=== PATIENT | male | born 1945 | race Caucasian/White ===

== ENCOUNTER 2017-05-06 11:33 | Outpatient (CLI) | payer MEDICARE ==
[2017-05-06 12:55] LABS: Hemoglobin A1c 5.9 % (4.0-6.0)
[2017-05-06 13:08] LABS: #Eosinphils 0.1 thou/uL (0.0-0.7); #Lymphocytes 1.5 thou/uL (1.20-3.40); #Monocytes 1.1 thou/uL (0.11-0.59); #Neutrophils 5.2 thou/uL (1.40-6.50); %Basophils 0.6 % (0.0-1.0); %Eosinophils 1.4 % (0.0-10.0); %Monocytes 14.2 % (0.0-10.0); Hematocrit 33.5 % (42.0-52.0); Mean Platelet Volume 10.9 fL (7.4-10.4); Red Blood Cell (RBC) Count 5.04 mill/uL (4.70-6.10)
[2017-05-06 13:11] LABS: ALT (SGPT) Less than 7 U/L (8-55); AST (SGOT) 11 U/L (5-34); Alkaline Phosphatase 90 U/L (40-150); Anion Gap 15 mmol/L (10-20); BUN (Urea Nitrogen) 18 mg/dL (8.4-25.7); Bilirubin, Total 0.5 mg/dL (0.2-1.2); Calc. Creatinine Clearance 0 mL/min (70-130); Calcium 9.1 mg/dL (7.8-10.44); Carbon Dioxide 24 mmol/L (23-31); Chloride 103 mmol/L (98-107); Estimated GFR-MDRD 88; Globulin 3.9 g/dL (2.4-3.5); Protein, Total 7.3 g/dL (5.8-8.1)
[2017-05-06 13:37] LABS: Anisocytosis MODERATE=16-30 cells (100X) (0-5/hpf); Hypochromia MODERATE=16-30 cells (100X) (0-5/hpf); Microcytosis MODERATE=15-30 cells (100X) (0-5/hpf); Ovalocytes SLIGHT = 2-5 cells (100X) (0-1/hpf); Polychromasia SLIGHT = 2-3 cells (100X) (0-2/hpf); Schistocytes SLIGHT = 2-5 cells (100X) (0-1/hpf); Target Cells SLIGHT = 2-5 cells (100X) (0-1/hpf)
== END 2017-05-06 11:34 | disposition home or self-care (01) ==
LOC: LABBT 11:33
PROVIDERS: ATTEND Specialist
DX: Z01.812 Encounter for preprocedural laboratory examination (principal); C18.7 Malignant neoplasm of sigmoid colon
CPT/HCPCS: 80053; 82378; 83036; 85025; 93005; 93010

== ENCOUNTER 2017-05-10 05:28 | Inpatient (IN) | payer MEDICARE ==
[2017-05-10] MEDS ORDERED: Ketorolac Tromethamine 30 MG/ML VIAL ONE ×2 (06:15→12:45)
[2017-05-10] MEDS ORDERED: cefOXitin 2 GM, Syringe 1 ML in Sterile Water 10 ML SLOW IVP SCH (06:30)
[2017-05-10] MEDS ORDERED: Fentanyl 100 MCG/2 ML VIAL ONE ×3 (06:53→07:19)
[2017-05-10] MEDS ORDERED: Midazolam HCl 2 mg/2 ml Vial ONE (06:53)
[2017-05-10] MEDS ORDERED: Bupivacaine/Epinephrine 0.25% 30 ML VIAL ONE ×2 (07:05→09:09)
[2017-05-10] MEDS ORDERED: Glycopyrrolate 0.2 MG/ML 5 ML SYRINGE ONE (07:37)
[2017-05-10] MEDS ORDERED: Ondansetron HCl/PF 4 MG/2 ML Vial ONE (07:37)
[2017-05-10] MEDS ORDERED: ePHEDrine/0.9% NaCl/PF SYRINGE 50 mg/10 ml ONE (07:37)
[2017-05-10] MEDS ORDERED: Propofol 200 MG/20 ML VIAL ONE (07:37)
[2017-05-10] MEDS ORDERED: Lidocaine 2% w/Epinephrine 1:200K 20 ML VIAL ONE (08:05)
[2017-05-10] MEDS ORDERED: cefOXitin 2 GM VIAL ONE (09:09)
[2017-05-10] MEDS ORDERED: Insulin Regular 300 UNITS/3 ML VIAL ONE (10:10)
[2017-05-10] MEDS ORDERED: Promethazine HCl 25 MG/ML VIAL IM PRN ×2 (11:29→13:05)
[2017-05-10] MEDS ORDERED: Promethazine HCl 25 MG/ML VIAL SLOW IVP PRN (11:29)
[2017-05-10] MEDS ORDERED: Ondansetron HCl/PF 4 MG/2 ML Vial IVP PRN ×2 (11:29→13:05)
[2017-05-10] MEDS ORDERED: Dextrose 5% in Water 1,000 ML IV PRN (11:30)
[2017-05-10] MEDS ORDERED: Insulin Regular 300 UNITS/3 ML VIAL SC PRN ×2 (11:30→13:05)
[2017-05-10] MEDS ORDERED: Dextrose 50% Abboject 50 ML SYRINGE SLOW IVP PRN (11:30)
[2017-05-10] MEDS ORDERED: hydrALAZINE 20 MG/ML VIAL SLOW IVP PRN (13:05)
[2017-05-10] MEDS ORDERED: Famotidine/PF 20 mg/2ml Vial SLOW IVP SCH ×2 (13:05→14:00)
[2017-05-10] MEDS ORDERED: Acetaminophen 1,000 MG in Premix Bag 1 BAG IVPB SCH ×2 (13:05→14:00)
[2017-05-10] MEDS ORDERED: Morphine 4 MG/ML Carpuject SLOW IVP PRN ×2 (13:05)
[2017-05-10] MEDS: Aspirin 81 mg Enteric Coated Tablet PO SCH (13:48)
[2017-05-10] MEDS: metFORMIN 500 MG TAB PO SCH (13:48)
[2017-05-10] MEDS: Carvedilol 6.25 MG TAB PO SCH (13:49)
[2017-05-10] MEDS: Famotidine 20 MG TAB PO SCH ×2 (13:49→20:23)
[2017-05-10] MEDS: Ketorolac Tromethamine 30 MG/ML VIAL IVP SCH ×3 (13:50→23:59)
[2017-05-10] MEDS: D5 1/2 NS w/20 mEq KCL 1,000 ML IV SCH ×2 (13:51→20:24)
[2017-05-10] MEDS ORDERED: cefOXitin Sodium 1 GM in Sodium Chloride 0.9% 100 ML IVPB SCH (14:00)
[2017-05-10] MEDS ORDERED: Famotidine 20 MG TAB PO SCH (14:00)
[2017-05-10] MEDS: cefOXitin Sodium 1 GM, Syringe 0.5 ML in Sterile Water 10 ML SLOW IVP SCH ×2 (14:07→22:07)
[2017-05-10 14:56] VITALS: BMI 25.9
[2017-05-10] MEDS ORDERED: FLU VACC TS2017-18 (>65YR) 0.5 ML SYRINGE IM ONE (17:15)
[2017-05-10] MEDS: Acetaminophen 1,000 MG in Premix Bag 1 BAG IVPB SCH (20:20)
[2017-05-10] MEDS: Famotidine/PF 20 mg/2ml Vial SLOW IVP SCH (20:23)
[2017-05-10] MEDS: Enoxaparin Sodium 40 MG/0.4 ML SYRINGE SC SCH (20:23)
[2017-05-11] MEDS: Acetaminophen 1,000 MG in Premix Bag 1 BAG IVPB SCH ×2 (02:41→08:19)
[2017-05-11 05:44] LABS: #Eosinphils 0.1 thou/uL (0.0-0.7); #Lymphocytes 1.4 thou/uL (1.20-3.40); #Monocytes 1.4 thou/uL (0.11-0.59); %Basophils 0.4 % (0.0-1.0); %Eosinophils 0.7 % (0.0-10.0); %Lymphocytes 12.8 % (21.0-51.0); %Monocytes 12.5 % (0.0-10.0); Hematocrit 29.5 % (42.0-52.0); Mean Platelet Volume 10.5 fL (7.4-10.4); White Blood Cell (WBC) Count 10.8 thou/uL (4.8-10.8)
[2017-05-11 05:55] LABS: Anion Gap 14 mmol/L (10-20); BUN (Urea Nitrogen) 12 mg/dL (8.4-25.7); Calc. Creatinine Clearance 112 mL/min (70-130); Calcium 8.4 mg/dL (7.8-10.44); Carbon Dioxide 23 mmol/L (23-31); Chloride 103 mmol/L (98-107); Estimated GFR-MDRD Greater than 90
[2017-05-11] MEDS: D5 1/2 NS w/20 mEq KCL 1,000 ML IV SCH ×2 (06:22→12:46)
[2017-05-11] MEDS: Ketorolac Tromethamine 30 MG/ML VIAL IVP SCH ×4 (06:23→23:52)
[2017-05-11] MEDS ORDERED: HYDROcodone/Acetaminophen 7.5/325 mg Tablet PO PRN ×2 (07:47)
[2017-05-11] MEDS: Famotidine/PF 20 mg/2ml Vial SLOW IVP SCH ×2 (08:19→21:00)
[2017-05-11] MEDS: Famotidine 20 MG TAB PO SCH ×2 (08:20→20:53)
[2017-05-11] MEDS ORDERED: Insulin Detemir 100 UNITS/ML 12 UNITS in Pre-Filled Syringe 1 EACH SC SCH (10:15)
[2017-05-11] MEDS: metFORMIN 500 MG TAB PO SCH (10:33)
[2017-05-11] MEDS: Carvedilol 6.25 MG TAB PO SCH (10:59)
[2017-05-11] MEDS: Aspirin 81 mg Enteric Coated Tablet PO SCH (10:59)
--- NOTE | 2017-05-11 13:07 | CON ---
DATE OF CONSULTATION: 05/11/2017 SERVICE: Pulmonary Medicine. REASON FOR CONSULTATION: ICU patient. HISTORY OF PRESENT ILLNESS: The patient is a 72-year-old white male who presented in the outpatient setting for an elective colectomy. In the postoperative period, he had elevated blood sugars and h e required an insulin drip in order to prevent poor healing. He currently denies any fevers, chills , nausea or vomiting. His abdominal pain is under decent control, but he does remain exquisitely te nder with any type of manipulation or palpation. He has not passed any gas, or had a bowel movement since the procedure. His appetite is coming around, but he is not too terribly hungry at this time . Otherwise, he is in his usual state of health and has no specific complaints. PAST MEDICAL HISTORY: 1. Hypertension. 2. Dyslipidemia. 3. Coronary artery disease. 4. Type 2 diabetes mellitus. 5. Allergic rhinitis. 6. Osteoarthritis. 7. Colon cancer. PAST SURGICAL HISTORY: 1. Coronary artery bypass graft. 2. Partial colectomy. 3. Colonoscopy. SOCIAL HISTORY: Negative for significant alcohol, tobacco or illicit drug use. He denies any expos ure to chemicals, dust asbestos or tuberculosis. FAMILY HISTORY: Noncontributory. ALLERGIES: No known drug allergies. MEDICATIONS: List of inpatient medications was reviewed. No specific updates were made at this [facility]. REVIEW OF SYSTEMS: General, head, ears, eyes, nose, throat, cardiovascular, respiratory, GI, , mu sculoskeletal, neurologic and skin is negative except as mentioned in the HPI. PHYSICAL EXAMINATION: VITAL SIGNS: Afebrile, pulse 62, blood pressure 130/52, respirations 27, saturation 100% on room ai r. GENERAL: The patient is awake, alert, in no apparent distress. LUNGS: Excellent air entry with no prolonged expiratory phase, wheezing, rhonchi or crackles. HEART: Normal rate, regular. ABDOMEN: Soft, nontender, nondistended, bowel sounds positive. MUSCULOSKELETAL: No cyanosis or clubbing. No pitting in the bilateral lower extremities. NEUROLOGIC: Grossly nonfocal. LABORATORY DATA: WBC 10.8, hemoglobin 8.9, platelets 499,000. Blood sugars ranged from 120-149. B asic metabolic profile is otherwise unremarkable. Liver function studies were also unremarkable pre viously. Outpatient CEA was increasing 3 times. ASSESSMENT: 1. Adenocarcinoma of the colon, status post partial colectomy of the sigmoid colon with primary leni stomosis, postoperative day #1. 2. Type 2 diabetes mellitus. 3. Obstructive sleep apnea, likely. PLAN: After 24 hours, he can be transitioned off of the insulin drip and sent to the surgical unit. Pulmonary will continue to follow while he remains in this location. In the outpatient setting, e valuation for sleep apnea should be considered.
[2017-05-11] MEDS: Enoxaparin Sodium 40 MG/0.4 ML SYRINGE SC SCH (20:53)
[2017-05-12] MEDS: Ketorolac Tromethamine 30 MG/ML VIAL IVP SCH (05:36)
[2017-05-12 08:27] VITALS: BP 124/63; TEMP 97.5
[2017-05-12] MEDS: Carvedilol 6.25 MG TAB PO SCH (08:46)
[2017-05-12] MEDS: Famotidine/PF 20 mg/2ml Vial SLOW IVP SCH (08:46)
[2017-05-12] MEDS: Aspirin 81 mg Enteric Coated Tablet PO SCH (08:46)
[2017-05-12] MEDS: Famotidine 20 MG TAB PO SCH (08:46)
[2017-05-12] MEDS: metFORMIN 500 MG TAB PO SCH (08:46)
--- NOTE | 2017-05-12 11:04 | DIS ---
DATE OF ADMISISON: 05/10/2017 DATE OF DISCHARGE: 05/12/2017 ADMISSION DIAGNOSIS: Sigmoid colon cancer. DISCHARGE DIAGNOSIS: Sigmoid colon cancer. OPERATION PERFORMED: Laparoscopic hand-assisted sigmoid colectomy with periaortic lymph node dissec tion. ADMISSION HISTORY: The patient is a 72-year-old white male. He was noted to be anemic and on colon oscopic screening who was found to have a partially obstructing sigmoid colon cancer. Laparoscopic sigmoid colectomy was recommended. HOSPITAL COURSE: The patient had a difficult, but uneventful laparoscopic sigmoid colectomy. He ap peared to have 2 separate masses within his colon that were within 10 cm of each other. He also gael eared to have some potentially bulky lymphadenopathy that necessitated additional periaortic lymphad enectomy. The surgery was uneventful. There were no complications, minimal blood loss. The patien t tolerated the procedure well. He did have elevated blood sugar during the operation; therefore, w as observed for 24 hours in the ICU, so that he can be on an insulin drip protocol. IMCU was full a nd therefore he have to go to the ICU. He was entirely stable during his time in the ICU. His suga rs stabilized quickly and he remained on an insulin drip of about 4 units per hour while he was in [facility] ICU. He transferred to the surgical floor on postoperative day #1. He was tolerating his clear diet uneventfully. The Deras catheter was removed and he voided uneventfully as well. Today, he is tolerating his full liquid diet. He denies nausea or vomiting. He has had flatus. He has excelle nt bowel sounds. He has never had any significant discomfort and is taking no narcotic medication a t all. His exam is entirely benign. He is felt to be stable for discharge. Discharge orders are written today. He is given no pain medication as he has required none in the h ospital. He is instructed to use [id number] pain medications as necessary. I will see him parag velez on 05/20/2017 when he is 10 days out from his surgery. Pathology is still pending at this time.
--- NOTE | 2017-05-12 11:53 | PRG ---
DATE OF SERVICE: 05/12/2017 SERVICE: Pulmonary Medicine. INTERVAL HISTORY: The patient is doing fine from a cardiovascular and respiratory standpoint. He d enies any fevers, chills, nausea, or vomiting. He has some abdominal tenderness, but he was able to get up and walk around without much difficulty. His pain is under decent control. He is having no rmal bowel function. He is also tolerating p.o. He is hopeful to go home later today. PHYSICAL EXAMINATION: VITAL SIGNS: Afebrile, pulse 70, blood pressure 124/63, respirations 18, saturation 97% on room air . GENERAL: The patient is awake, alert, in no apparent distress. LUNGS: Excellent air entry with no prolonged expiratory phase, wheezing, rhonchi, or crackles. HEART: Normal rate, regular. ABDOMEN: Soft, nontender, nondistended. Bowel sounds positive. MUSCULOSKELETAL: No cyanosis or clubbing. No pitting in the bilateral lower extremities. NEUROLOGIC: Grossly nonfocal. LABORATORY DATA: Blood sugars ranged from 126-193. ASSESSMENT: 1. Adenocarcinoma of the colon, status post partial colectomy of the sigmoid colon with primary leni stomosis, postoperative day #2. 2. Type 2 diabetes mellitus. 3. Obstructive sleep apnea, likely. PLAN: The patient has no further requirements for inpatient pulmonary critical care team. As such, we will sign off. I would like to see him in clinic in to discuss sleep apnea and whether or not p ursuing a polysomnogram would be appropriate.
--- NOTE | 2017-05-13 14:05 | OP ---
DATE OF PROCEDURE: 05/10/2017 PREOPERATIVE DIAGNOSIS: Sigmoid colon cancer. POSTOPERATIVE DIAGNOSES: Sigmoid colon cancer with 2 separate synchronous lesions located about 10 cm apart. OPERATION PERFORMED: Hand-assisted laparoscopic sigmoid colectomy, periaortic lymph node dissecti on. SURGEON: Aj Benton M.D. ANESTHESIA: General endotracheal. INDICATIONS: The patient is a 72-year-old white male. He underwent evaluation recently secondary t o anemia and was found to have a sigmoid colon cancer. He has undergone cardiac clearance and is ta ernie to the operating room at this time for a sigmoid colectomy. He had outpatient mechanical and an tibiotic bowel prep. OPERATIVE PROCEDURE IN DETAIL: Informed consent was obtained. The patient was taken to the operati ng room where general endotracheal anesthesia was obtained with the patient in supine position. Tap blocks had been placed by Anesthesia preoperatively. Dears catheter was placed, the abdomen was pr epped with ChloraPrep and draped in sterile fashion. Local anesthetic was infiltrated using 0.25% M arcaine with epinephrine and a 5 mm supraumbilical incision was created through which a Veress needl e was passed into the peritoneal cavity and pneumoperitoneum established using carbon dioxide up to a pressure of 15 mmHg. A 5 mm trocar port was passed through this same incision. Laparoscopic camer a was passed through this port. Under direct vision, a 12 mm right lower quadrant port was placed. I selected a location for the extraction site and an 8 cm oblique left lower quadrant incision was created. Dissection was carried through skin and subcutaneous tissue. Muscle splitting was utilize d to gain access to the abdominal cavity. The Samuel wound retractor was passed through this wound and the GelPort was affixed to this. Examination within the abdomen revealed a bulky tumor in the upper rectum at the rectosigmoid juncti on. The mesentery around this was very full and thick and certainly gave the impression of metastat ic lymph nodes being within this. There was a second focus of induration within the colon at about the mid sigmoid colon that was adherent to the left lateral abdominal wall and the pelvic side wall. This also gave the impression of a second malignancy. I carefully dissected the sigmoid mass away from the lateral abdominal wall using the LigaSure. Some of the peritoneum was taken with the mass in order to obtain clear margins. I then followed this dissection superiorly and mobilized the lef t colon by incising the white line of Toldt. This dissection was carried up in order to fully mobil ize the splenic flexure. The omentum was taken off of the distal transverse colon to fully free the segment. The colon was then mobilized by elevating the mesentery off of Toldt fascia in a lateral to medial fashion. I then turned my attention to the mesentery at the base of the sigmoid colon. This was incised and a mesenteric/retroperitoneal dissection was carried laterally. Because of the thickness of the tiss ue it was difficult to ascertain the location of the left ureter. I examined the retroperitoneum on the left side and still had difficulty identifying the ureter. I therefore began dissection along the right hand side, incising the peritoneum all the way down into the pelvis and across the anterio r aspect of the rectum. I completed this peritoneal dissection on the left. I was able to enter th e post-mesenteric plane and elevated the mesentery away from the sacrum by incising the areolar tiss ue extending deeply. I was able to identify the malignancy within the upper rectum. I dissected se veral centimeters below this and began to divide the mesorectum at this level. I eventually cleared the rectum at the level of the upper rectum and divided this with 2 fires of the [place] stapler us ing the blue loads. I then completed the mesorectal excision elevating the rest of the rectum towar ds the sigmoid colon in a retrograde fashion. At this point, I was able to identify the left ureter . This had been kept free from harm. Prior to this; however, I had asked anesthesia to give a dose of Indigo carmine. The urine had turned blue and there was certainly no evidence of any intra-abdom inal leak. I carefully dissected the mesentery back to the inferior mesenteric artery. At this point, I identi fied a segment of descending colon that would reach down into the pelvis and this was marked with e LigaSure. The two malignancies within the colon were then elevated through the Samuel wound retra ctor with difficulty. I could not have gotten this size of a cancer through anything smaller than t he devices being utilized. Once it was out, extracorporeally I divided the inferior mesenteric art alison between clamps and 2-0 silk ties and completed the mesenteric dissection to the area that had be en selected for anastomosis. Before opening the bowel, the area was toweled off and instruments to be utilized were selected. A colotomy was created and the anvil of a 33 mm EEA stapler was passed t hrough the colotomy and brought out antimesenteric several centimeters proximally. The colon was th en transected just proximal to the colostomy, removing the colotomy in continuity with the segment t o be resected and the specimen was passed off the field. A pursestring suture of 3-[address] aced around the base of the anvil. The anvil was prepped with Betadine. At this point, all instruments utilized while the bowel was opened were passed off the field. Towel s were removed. Gloves were changed. The proximal colon was dropped back down into the abdominal cavity and pneumoperitoneum was reestabl ished. From below, EEA sizers were passed up to the staple line under visible and palpable directio n. The 33 mm stapler was then brought up to the end of the staple line and the spike was advanced t hrough the staple line. The two segments of the bowel were mated and the stapler was fired to creat e the anastomosis. Since there were 2 cancers, I submitted both proximal and distal bowel segments even though they were both grossly clear by several centimeters. The integrity of the anastomosis was checked with an underwater air insufflation test and found to b e airtight. At the time that the colon was removed, before the anastomosis was created, as I inspected the abdom en, it was difficult to palpate the liver because of fairly dense adhesions in the upper abdomen. T he left lobe was certainly without evidence of metastatic disease. I was able to palpate some of th e right lobe, but not all of it. There was, however, additional lymphadenopathy within the retroper itoneum surrounding the inferior mesenteric artery. I therefore dissected all visible and palpable retroperitoneal lymphadenopathy in the periaortic region and submitted this as a separate specimen. There was no other visible or palpable disease present within the retroperitoneum or mesentery. The fascia at the 12 mm port site was closed with 0 Vicryl suture using a GraNee needle. Instrument s and ports were removed under direct vision. Pneumoperitoneum was carefully evacuated. The abdomi nal wall was thoroughly cleansed and all instruments were removed from the field. Gowns and gloves were changed in preparation for closure. The closing tray was utilized to close the wound. The lef t lower quadrant fascia was closed with #1 PDS suture in 2 layers. Additional local anesthetic was infiltrated during closure. The wound was irrigated with 2 liters of saline. The wound was then cl osed in layers with 3-0 and 4-0 Monocryl. The remaining incisions were closed with 4-0 Monocryl sub cuticular. Dermabond was placed externally over each incision. There were no complications. Blood loss was minimal. The patient tolerated the procedure well and was taken to recovery room in stabl e condition.
== END 2017-05-12 11:53 | disposition home or self-care (01) | DRG 331 ==
LOC: SURG A 05:28 → EDSTATUS 11:35 → CCU 11:48 → SURG B 05-11 16:41
PROVIDERS: ADMIT Specialist; ATTEND Specialist
PROC: 0DBN0ZZ Excision of Sigmoid Colon, Open Approach (ICD-10-PCS; principal; 2017-05-10)
PROC: 07BD0ZX Excision of Aortic Lymphatic, Open Approach, Diagnostic (ICD-10-PCS; 2017-05-10)
PROC: 3E0T3BZ Introduction of Anesthetic Agent into Peripheral Nerves and Plexi, Percutaneous Approach (ICD-10-PCS; 2017-05-10)
DX: C18.7 Malignant neoplasm of sigmoid colon (principal); E11.65 Type 2 diabetes mellitus with hyperglycemia; I25.5 Ischemic cardiomyopathy; I25.10 Atherosclerotic heart disease of native coronary artery without angina pectoris; I10 Essential (primary) hypertension; G47.33 Obstructive sleep apnea (adult) (pediatric); D50.9 Iron deficiency anemia, unspecified; J30.9 Allergic rhinitis, unspecified; M19.90 Unspecified osteoarthritis, unspecified site; Z95.1 Presence of aortocoronary bypass graft; Z79.84 Long term (current) use of oral hypoglycemic drugs; Z79.82 Long term (current) use of aspirin; E78.00 Pure hypercholesterolemia, unspecified; Z87.891 Personal history of nicotine dependence
CPT/HCPCS: 36415; 36416; 80048; 85025; 88307; 88309; 90471; 90682; 90732; A4216; G0008; G0009; J0131; J0694; J1650; J1815; J1885; J2250; J2405; J2704; J3010; J7050; Q2036; S0028

== ENCOUNTER 2017-06-06 15:17 | Outpatient (CLI) | payer MEDICARE | END 2017-06-06 15:18 | disposition home or self-care (01) | LOC: LABBT 15:17 | PROVIDERS: ATTEND Specialist | DX: Z01.812 Encounter for preprocedural laboratory examination (principal); C18.7 Malignant neoplasm of sigmoid colon ==

== ENCOUNTER 2017-06-10 12:12 | Day surgery (SDC) | payer MEDICARE ==
[2017-06-06 15:43] VITALS: BMI 29.3
[2017-06-10] MEDS ORDERED: CEFAZOLIN/Water 2 GM/20 ML SYRINGE ONE (13:11)
[2017-06-10] MEDS ORDERED: Ketorolac Tromethamine 30 MG/ML VIAL ONE (13:11)
[2017-06-10] MEDS ORDERED: Lidocaine 2% PF 5 ML VIAL ONE (14:51)
[2017-06-10] MEDS ORDERED: Bupivacaine/Epinephrine 0.25% 30 ML VIAL ONE (14:51)
[2017-06-10] MEDS ORDERED: Fentanyl 100 MCG/2 ML VIAL ONE (14:59)
[2017-06-10] MEDS ORDERED: Propofol 200 MG/20 ML VIAL ONE (16:21)
[2017-06-10] MEDS ORDERED: Lidocaine 1% PF 5 ML VIAL ONE (16:21)
--- NOTE | 2017-06-10 16:42 | OP ---
DATE OF SERVICE: 06/10/2017 PREOPERATIVE DIAGNOSIS: Colon cancer. POSTOPERATIVE DIAGNOSIS: Colon cancer. OPERATION PERFORMED: Placement of right subclavian power compatible standard sized MediPort. SURGEON: Aj Benton M.D. ANESTHESIA: Total intravenous anesthesia with local using 0.25% Marcaine with epinephrine. INDICATIONS: The patient is a 72-year-old white male. He had a recent surgery for colon cancer. He has metastatic disease to the lymph nodes and chemotherapy has been recommended. He presents for Me diPort placement for chemotherapy administration. DESCRIPTION OF OPERATION: Informed consent was obtained. The patient was taken to the operating brandi m where total intravenous anesthesia obtained with the patient in supine position. Right chest was p repped with ChloraPrep and draped in sterile fashion. Local anesthetic was infiltrated and a large g auge needle was passed in the clavicle and subclavian vein. Guidewire was passed through the needle and fluoroscopically confirmed in the superior vena cava. Additional local anesthetic was infiltrate d and transverse incision was created based on needle insertion site. A subcutaneous pocket was diss ected inferiorly. Introducer dilator was passed over the guidewire with fluoroscopic guidance. The catheter was passed through the introducer, which was moved in the usual peel-apart fashion. Cathete r tip was positioned at the atrial caval junction and the catheter was trimmed to appropriate length and secured to the locking hub of the MediPort. The port was placed within the subcutaneous pocket a nd secured to the fascia with 2 interrupted sutures of 3-0 Prolene. The wound was closed in layers w ith 3-0 and 4-0 Monocryl. Dermabond was placed externally. The port aspirated blood easily and was flushed with heparinized saline. There were no complications. Patient tolerated the procedure well and was taken to recovery room in stable condition.
--- NOTE | 2017-06-10 18:21 | RAD ---
UPRIGHT PORTABLE CHEST 06/10/17 HISTORY: 72-year-old male status post Mediport placement. A right subclavian catheter injection port. Postop midline sternotomy. Heart size is within normal li mits. No confluent pneumonia, overt edema, or pleural effusion. No evidence for pneumothorax. IMPRESSION: Right subclavian catheter and Mediport placement. No pneumothorax or other acute process. POS: [facility]
== END 2017-06-10 16:38 | disposition home or self-care (01) ==
LOC: SDC 12:12
PROVIDERS: ATTEND Specialist
PROC: 05H533Z Insertion of Infusion Device into Right Subclavian Vein, Percutaneous Approach (ICD-10-PCS; principal; 2017-06-10)
PROC: B516ZZA Fluoroscopy of Right Subclavian Vein, Guidance (ICD-10-PCS; 2017-06-10)
DX: C18.7 Malignant neoplasm of sigmoid colon (principal); C77.9 Secondary and unspecified malignant neoplasm of lymph node, unspecified; Z79.82 Long term (current) use of aspirin; Z79.899 Other long term (current) drug therapy; Z90.49 Acquired absence of other specified parts of digestive tract
CPT/HCPCS: 36561; 71010; C1788; J0131; J1642; J1885; J2001; J2704; J3010

== ENCOUNTER 2017-06-11 09:53 | Outpatient (CLI) | payer MEDICARE ==
--- NOTE | 2017-06-13 10:19 | PET ---
PET CT: HISTORY: Colon cancer. TECHNIQUE: PET CT was performed from the skull base through the mid thigh after administration of 16.64 mCi F18- FDG> FINDINGS: CT images used for attenuation correction shows postsurgical changes in the rectum from prior rectal surgery. Hypermetabolic activity is seen in the colon, but this is likely physiologic. There are enla rged hypermetabolic retroperitoneal lymph nodes measuring up to 2.7 cm in size. Max SUV value of thes e lymph nodes is 4.2. There are bilateral adrenal masses which are hypermetabolic. The largest is see n on the left measuring 2.2 cm in size with max SUV value of 5.7. There are hypermetabolic bilateral cervical lymph nodes which are not significantly enlarged but have a max SUV value of 5.6. There are diffuse hypermetabolic osseous lesions throughout the skeleton. These are seen in the verte bral bodies, posterior elements of the spine, bilateral pelvic bones, right femur, bilateral acromion processes of the scapula, and ribs. Max SUV value is seen in the L5 vertebral body with a max SUV va lue of 10.3. CT images used for attenuation correction shows moderate left hydronephrosis. Atherosclerotic calcifi cations are seen in the aorta. Atelectasis is seen in the left lung base. There is a right-sided Medi Port with its tip in the superior vena cava. Gallstones are seen in the gallbladder. There is heterogeneous activity in the liver. No obvious focal liver lesions are seen, but metastatic disease to the liver is a possibility given the heterogeneous hypermetabolic activity in the liver. There is hypermetabolic activity in the anterior abdominal wall which may represent postsurgical robles ge. IMPRESSION: 1. Bilateral adrenal metastatic disease. 2. Metastatic disease to cervical and retroperitoneal lymph nodes. 3. Diffuse osseous metastatic disease. POS: [facility]
== END 2017-06-11 09:54 | disposition home or self-care (01) ==
LOC: PET 09:53
PROVIDERS: ATTEND Internal Medicine Medical Oncology
DX: C18.7 Malignant neoplasm of sigmoid colon (principal); C79.72 Secondary malignant neoplasm of left adrenal gland; C79.71 Secondary malignant neoplasm of right adrenal gland; C77.2 Secondary and unspecified malignant neoplasm of intra-abdominal lymph nodes; C77.5 Secondary and unspecified malignant neoplasm of intrapelvic lymph nodes; C79.51 Secondary malignant neoplasm of bone
CPT/HCPCS: 78815; A9552

== ENCOUNTER 2017-06-22 10:48 | Day surgery (SDC) | payer MEDICARE ==
[2017-06-22] MEDS ORDERED: Sodium Chloride 0.9% 20 ML ONE (11:35)
[2017-06-22 11:42] VITALS: BP 149/70; TEMP 98
[2017-06-22] MEDS ORDERED: DEXTROSE 5% IVPB SCH ×5 (12:00)
[2017-06-22] MEDS ORDERED: FLUOROURACIL IVPB SCH ×2 (12:00)
[2017-06-22] MEDS ORDERED: WATER IVPB SCH ×5 (12:00)
[2017-06-22] MEDS ORDERED: OXALIPLATIN IVPB SCH ×3 (12:00)
[2017-06-22] MEDS ORDERED: ONDANSETRON IVPB SCH (12:00)
[2017-06-22] MEDS ORDERED: DEXAMETHASONE IVPB SCH (12:00)
[2017-06-22] MEDS ORDERED: BEVACIZUMAB IVPB SCH (12:00)
[2017-06-22] MEDS ORDERED: SODIUM CHLORIDE 0.9% IVPB SCH ×2 (12:00)
== END 2017-06-22 17:53 | disposition home or self-care (01) ==
LOC: ONC/OP 10:48
PROVIDERS: ATTEND Internal Medicine Medical Oncology
DX: Z51.11 Encounter for antineoplastic chemotherapy (principal); C18.7 Malignant neoplasm of sigmoid colon; C79.71 Secondary malignant neoplasm of right adrenal gland; C79.72 Secondary malignant neoplasm of left adrenal gland; C77.2 Secondary and unspecified malignant neoplasm of intra-abdominal lymph nodes; C77.5 Secondary and unspecified malignant neoplasm of intrapelvic lymph nodes; C79.51 Secondary malignant neoplasm of bone; D50.9 Iron deficiency anemia, unspecified; I10 Essential (primary) hypertension; E11.9 Type 2 diabetes mellitus without complications; I25.2 Old myocardial infarction; E78.5 Hyperlipidemia, unspecified; Z87.891 Personal history of nicotine dependence; Z79.82 Long term (current) use of aspirin; Z79.84 Long term (current) use of oral hypoglycemic drugs; Z79.899 Other long term (current) drug therapy; Z95.828 Presence of other vascular implants and grafts; Z90.49 Acquired absence of other specified parts of digestive tract; Z98.890 Other specified postprocedural states
CPT/HCPCS: 36415; 80053; 82248; 82378; 83615; 84100; 84550; 96367; 96413; 96415; 96417; A4216; J1100; J2405; J7050; J7070; J9035; J9190; J9263

== ENCOUNTER 2017-07-05 11:34 | Day surgery (SDC) | payer MEDICARE, OTHER ==
[2017-07-05] MEDS ORDERED: Sodium Chloride 0.9% 20 ML ONE (11:44)
[2017-07-05 11:51] VITALS: BP 135/63; TEMP 97.4
[2017-07-05] MEDS ORDERED: SODIUM CHLORIDE 0.9% IVPB SCH (12:30)
[2017-07-05] MEDS ORDERED: Dexamethasone 10 MG, Ondansetron HCl/PF 10 MG in Sodium Chloride 0.9% 50 ML IVPB SCH (12:30)
[2017-07-05] MEDS ORDERED: OXALIPLATIN IVPB SCH (12:30)
[2017-07-05] MEDS ORDERED: BEVACIZUMAB IVPB SCH (12:30)
[2017-07-05] MEDS ORDERED: FLUOROURACIL IVPB SCH (12:30)
[2017-07-05] MEDS ORDERED: WATER IVPB SCH ×2 (12:30)
[2017-07-05] MEDS ORDERED: DEXTROSE 5% IVPB SCH ×2 (12:30)
[2017-07-05] MEDS ORDERED: Admixture Fee 1 EACH in Dextrose 5% in Water 10 ML FS SCH (13:45)
[2017-07-18] MEDS ORDERED: SODIUM CHLORIDE 0.9% IVPB SCH (10:45)
[2017-07-18] MEDS ORDERED: WATER IVPB SCH (10:45)
[2017-07-18] MEDS ORDERED: BEVACIZUMAB IVPB SCH (10:45)
[2017-07-18] MEDS ORDERED: FLUOROURACIL IVPB SCH (10:45)
[2017-07-18] MEDS ORDERED: DEXTROSE 5% IVPB SCH (10:45)
== END 2017-07-05 17:53 | disposition home or self-care (01) ==
LOC: ONC/OP 11:34
PROVIDERS: ATTEND Internal Medicine Medical Oncology
DX: Z51.11 Encounter for antineoplastic chemotherapy (principal); C18.7 Malignant neoplasm of sigmoid colon; C77.3 Secondary and unspecified malignant neoplasm of axilla and upper limb lymph nodes; C77.2 Secondary and unspecified malignant neoplasm of intra-abdominal lymph nodes; C79.72 Secondary malignant neoplasm of left adrenal gland; C79.71 Secondary malignant neoplasm of right adrenal gland; C79.51 Secondary malignant neoplasm of bone; D50.9 Iron deficiency anemia, unspecified; E11.9 Type 2 diabetes mellitus without complications; I10 Essential (primary) hypertension; I25.2 Old myocardial infarction; E78.5 Hyperlipidemia, unspecified; Z79.84 Long term (current) use of oral hypoglycemic drugs; Z79.82 Long term (current) use of aspirin; Z79.899 Other long term (current) drug therapy; Z90.49 Acquired absence of other specified parts of digestive tract; Z98.890 Other specified postprocedural states; Z87.891 Personal history of nicotine dependence
CPT/HCPCS: 96375; 96413; 96415; 96417; A4216; J1100; J2405; J7050; J7070; J9035; J9190; J9263

== ENCOUNTER 2017-07-18 10:15 | Day surgery (SDC) | payer MEDICARE ==
[2017-07-18] MEDS ORDERED: FLUOROURACIL IVPB SCH ×2 (10:45)
[2017-07-18] MEDS ORDERED: OXALIPLATIN IVPB SCH ×3 (10:45)
[2017-07-18] MEDS ORDERED: Dexamethasone 10 MG, Ondansetron HCl/PF 10 MG in Sodium Chloride 0.9% 50 ML IVPB SCH (10:45)
[2017-07-18] MEDS ORDERED: BEVACIZUMAB IVPB SCH (10:45)
[2017-07-18] MEDS ORDERED: SODIUM CHLORIDE 0.9% IVPB SCH (10:45)
[2017-07-18] MEDS ORDERED: WATER IVPB SCH ×5 (10:45)
[2017-07-18] MEDS ORDERED: DEXTROSE 5% IVPB SCH ×5 (10:45)
[2017-07-18 10:55] VITALS: BP 129/58; TEMP 98.1
[2017-07-18] MEDS ORDERED: Admixture Fee 1 EACH in Dextrose 5% in Water 10 ML FS SCH ×2 (11:15)
[2017-07-18] MEDS ORDERED: Sodium Chloride 0.9% 20 ML ONE (11:19)
== END 2017-07-18 15:50 | disposition home or self-care (01) ==
LOC: ONC/OP 10:15
PROVIDERS: ATTEND Internal Medicine Medical Oncology
DX: Z51.11 Encounter for antineoplastic chemotherapy (principal); C18.7 Malignant neoplasm of sigmoid colon; E11.9 Type 2 diabetes mellitus without complications; I10 Essential (primary) hypertension; I25.2 Old myocardial infarction; E78.5 Hyperlipidemia, unspecified; Z90.49 Acquired absence of other specified parts of digestive tract; Z98.890 Other specified postprocedural states; Z83.49 Family history of other endocrine, nutritional and metabolic diseases
CPT/HCPCS: 96367; 96413; 96415; 96417; A4216; J1100; J2405; J7050; J7070; J9035; J9190; J9263

== ENCOUNTER 2017-08-01 10:15 | Day surgery (SDC) | payer MEDICARE ==
[2017-08-01] MEDS ORDERED: Sodium Chloride 0.9% 40 ML ONE (10:26)
[2017-08-01 10:45] VITALS: BP 121/61; TEMP 97.9
[2017-08-01] MEDS ORDERED: OXALIPLATIN IVPB SCH ×3 (10:45)
[2017-08-01] MEDS ORDERED: WATER IVPB SCH ×5 (10:45)
[2017-08-01] MEDS ORDERED: BEVACIZUMAB IVPB SCH (10:45)
[2017-08-01] MEDS ORDERED: DEXTROSE 5% IVPB SCH ×5 (10:45)
[2017-08-01] MEDS ORDERED: FLUOROURACIL IVPB SCH ×2 (10:45)
[2017-08-01] MEDS ORDERED: SODIUM CHLORIDE 0.9% IVPB SCH (10:45)
[2017-08-01] MEDS ORDERED: Ondansetron HCl/PF 4 MG/2 ML Vial SLOW IVP SCH (11:00)
[2017-08-01] MEDS ORDERED: Dexamethasone 4 mg/ml Vial SLOW IVP SCH (11:00)
[2017-08-01] MEDS ORDERED: Dexamethasone 10 MG, Ondansetron HCl/PF 10 MG in Sodium Chloride 0.9% 50 ML IVPB SCH (11:00)
[2017-08-01] MEDS ORDERED: Dextrose 5% in Water 10 ML IVPB SCH (12:15)
== END 2017-08-01 15:50 | disposition home or self-care (01) ==
LOC: ONC/OP 10:15
PROVIDERS: ATTEND Internal Medicine Medical Oncology
DX: Z51.11 Encounter for antineoplastic chemotherapy (principal); C18.7 Malignant neoplasm of sigmoid colon; D50.9 Iron deficiency anemia, unspecified; C77.8 Secondary and unspecified malignant neoplasm of lymph nodes of multiple regions; C79.51 Secondary malignant neoplasm of bone; E11.9 Type 2 diabetes mellitus without complications; I10 Essential (primary) hypertension; I25.2 Old myocardial infarction; E78.5 Hyperlipidemia, unspecified; Z79.84 Long term (current) use of oral hypoglycemic drugs; Z79.82 Long term (current) use of aspirin; Z79.899 Other long term (current) drug therapy; Z90.49 Acquired absence of other specified parts of digestive tract; Z98.890 Other specified postprocedural states; Z87.891 Personal history of nicotine dependence; Z80.8 Family history of malignant neoplasm of other organs or systems
CPT/HCPCS: 36415; 80053; 82248; 82378; 83615; 84100; 84550; 96375; 96413; 96415; 96417; A4216; J1100; J2405; J7050; J7070; J9035; J9190; J9263

== ENCOUNTER 2017-08-11 13:08 | Outpatient (CLI) | payer MEDICARE ==
--- NOTE | 2017-08-12 10:54 | PET ---
PET CT: Date: 08/11/17 HISTORY: 72-year-old male with colon cancer. Exam requested for restaging. Patient had previous chemotherapy. TECHNIQUE: PET scanning with CT attenuation correction was performed from the base of the brain through the prox imal thighs following the intravenous administration of 11.7 mCi F18-FDG in the right hand. COMPARISON: PET CT dated 06/11/17. FINDINGS: No jack hypermetabolism is seen in the neck, chest, axilla, abdomen, or pelvis. The hypermetabolic a ctivity in the cervical and retroperitoneal lymph nodes noted on the previous study have resolved. No hypermetabolic pulmonary nodules, liver, or adrenal lesions are seen. The increased FDG localizati on in the bilateral adrenal glands on the previous study has resolved in the interim. There has been interval resolution of hypermetabolic lesions in the T2, T4, T6, T11, L2, L5, and S1 v ertebral bodies. The remainder of the hypermetabolic osseous lesions are again seen in the posterior elements of the spine, pelvic bones, scapula, and ribs, which have either improved or are stable. There is physiologic activity in the GI and tracts, and the visualized portions of the brain. The CT scan used for attenuation correction demonstrates gallstones and atelectatic changes at the le ft lung base. No pleural or pericardial effusions are seen. IMPRESSION: Partial response to therapy with interval improvement since 06/11/17. POS: [facility]
== END 2017-08-11 13:09 | disposition home or self-care (01) ==
LOC: PET 13:08
PROVIDERS: ATTEND Internal Medicine Medical Oncology
DX: C18.7 Malignant neoplasm of sigmoid colon (principal)
CPT/HCPCS: 78815; A9552

== ENCOUNTER 2017-08-15 10:51 | Day surgery (SDC) | payer MEDICARE ==
[2017-08-15] MEDS ORDERED: Ondansetron HCl/PF 4 MG/2 ML Vial IVP SCH (11:15)
[2017-08-15] MEDS ORDERED: Dexamethasone 4 mg/ml Vial SLOW IVP SCH (11:15)
[2017-08-15] MEDS ORDERED: ADMIXTURE FEE IVPB SCH ×7 (11:30)
[2017-08-15] MEDS ORDERED: BEVACIZUMAB IVPB SCH (11:30)
[2017-08-15] MEDS ORDERED: Sodium Chloride 0.9% 30 ML ONE (11:30)
[2017-08-15] MEDS ORDERED: Admixture Fee 1 EACH in Dextrose 5% in Water 10 ML FS SCH ×2 (11:30)
[2017-08-15] MEDS ORDERED: DEXTROSE IVPB SCH ×6 (11:30)
[2017-08-15] MEDS ORDERED: FLUOROURACIL IVPB SCH ×3 (11:30)
[2017-08-15] MEDS ORDERED: WATER IVPB SCH ×9 (11:30→11:45)
[2017-08-15] MEDS ORDERED: SODIUM CHLORIDE IVPB SCH (11:30)
[2017-08-15] MEDS ORDERED: OXALIPLATIN IVPB SCH ×6 (11:30→11:45)
[2017-08-15 11:39] VITALS: BP 108/57; TEMP 97.5
[2017-08-15] MEDS ORDERED: DEXTROSE 5% IVPB SCH ×3 (11:45)
== END 2017-08-15 15:17 | disposition home or self-care (01) ==
LOC: ONC/OP 10:51
PROVIDERS: ATTEND Internal Medicine Medical Oncology
DX: Z51.11 Encounter for antineoplastic chemotherapy (principal); C18.7 Malignant neoplasm of sigmoid colon; I10 Essential (primary) hypertension; E11.9 Type 2 diabetes mellitus without complications; I25.2 Old myocardial infarction; E78.5 Hyperlipidemia, unspecified; Z79.84 Long term (current) use of oral hypoglycemic drugs; Z79.899 Other long term (current) drug therapy; Z90.49 Acquired absence of other specified parts of digestive tract; Z98.890 Other specified postprocedural states; Z87.891 Personal history of nicotine dependence; Z80.8 Family history of malignant neoplasm of other organs or systems
CPT/HCPCS: 96375; 96413; 96415; 96417; A4216; J1100; J2405; J7050; J7070; J9035; J9190; J9263

== ENCOUNTER 2017-08-29 10:41 | Day surgery (SDC) | payer MEDICARE ==
[2017-08-29] MEDS ORDERED: Sodium Chloride 0.9% 50 ML ONE (10:52)
[2017-08-29] MEDS ORDERED: WATER IVPB SCH ×6 (11:00)
[2017-08-29] MEDS ORDERED: Dexamethasone 10 MG/ML VIAL SLOW IVP SCH (11:00)
[2017-08-29] MEDS ORDERED: OXALIPLATIN IVPB SCH ×3 (11:00)
[2017-08-29] MEDS ORDERED: ADMIXTURE FEE IVPB SCH ×7 (11:00→11:15)
[2017-08-29] MEDS ORDERED: FLUOROURACIL IVPB SCH ×3 (11:00)
[2017-08-29] MEDS ORDERED: DEXTROSE IVPB SCH ×6 (11:00)
[2017-08-29] MEDS ORDERED: Ondansetron HCl/PF 4 MG/2 ML Vial IVP SCH (11:00)
[2017-08-29] MEDS ORDERED: Admixture Fee 1 EACH in Dextrose 5% in Water 10 ML FS SCH ×2 (11:15)
[2017-08-29] MEDS ORDERED: BEVACIZUMAB IVPB SCH (11:15)
[2017-08-29] MEDS ORDERED: SODIUM CHLORIDE IVPB SCH (11:15)
[2017-08-29 13:26] VITALS: BP 130/58; TEMP 97.5
== END 2017-08-29 16:47 | disposition home or self-care (01) ==
LOC: ONC/OP 10:41
PROVIDERS: ATTEND Internal Medicine Medical Oncology
DX: Z51.11 Encounter for antineoplastic chemotherapy (principal); C18.7 Malignant neoplasm of sigmoid colon; C79.72 Secondary malignant neoplasm of left adrenal gland; C79.71 Secondary malignant neoplasm of right adrenal gland; C77.0 Secondary and unspecified malignant neoplasm of lymph nodes of head, face and neck; C77.2 Secondary and unspecified malignant neoplasm of intra-abdominal lymph nodes; C79.51 Secondary malignant neoplasm of bone; D50.9 Iron deficiency anemia, unspecified; E11.9 Type 2 diabetes mellitus without complications; I10 Essential (primary) hypertension; I25.2 Old myocardial infarction; E78.5 Hyperlipidemia, unspecified; Z79.84 Long term (current) use of oral hypoglycemic drugs; Z79.82 Long term (current) use of aspirin; Z79.899 Other long term (current) drug therapy; Z90.49 Acquired absence of other specified parts of digestive tract; Z98.890 Other specified postprocedural states; Z87.891 Personal history of nicotine dependence
CPT/HCPCS: 96368; 96375; 96413; 96417; A4216; J1100; J2405; J7050; J7070; J9035; J9190; J9263

== ENCOUNTER 2017-09-12 09:36 | Day surgery (SDC) | payer MEDICARE, OTHER ==
[2017-09-12] MEDS ORDERED: Sodium Chloride 0.9% 40 ML ONE (09:39)
[2017-09-12] MEDS ORDERED: Dexamethasone 10 MG/ML VIAL SLOW IVP SCH (10:00)
[2017-09-12] MEDS ORDERED: ADMIXTURE FEE IVPB SCH ×3 (10:00→10:15)
[2017-09-12] MEDS ORDERED: FLUOROURACIL IVPB SCH (10:00)
[2017-09-12] MEDS ORDERED: Ondansetron HCl/PF 4 MG/2 ML Vial IVP SCH (10:00)
[2017-09-12] MEDS ORDERED: DEXTROSE IVPB SCH ×2 (10:00)
[2017-09-12] MEDS ORDERED: OXALIPLATIN IVPB SCH (10:00)
[2017-09-12] MEDS ORDERED: WATER IVPB SCH ×2 (10:00)
[2017-09-12] MEDS ORDERED: SODIUM CHLORIDE IVPB SCH (10:15)
[2017-09-12] MEDS ORDERED: BEVACIZUMAB IVPB SCH (10:15)
[2017-09-12 10:18] VITALS: BP 110/55; TEMP 97.6
[2017-09-12] MEDS ORDERED: Admixture Fee 1 EACH in Dextrose 5% in Water 10 ML IV SCH (11:15)
== END 2017-09-12 16:00 | disposition home or self-care (01) ==
LOC: ONC/OP 09:36
PROVIDERS: ATTEND Internal Medicine Medical Oncology
DX: Z51.11 Encounter for antineoplastic chemotherapy (principal); C18.7 Malignant neoplasm of sigmoid colon; D50.0 Iron deficiency anemia secondary to blood loss (chronic); E11.9 Type 2 diabetes mellitus without complications; I10 Essential (primary) hypertension; I25.2 Old myocardial infarction; Z79.82 Long term (current) use of aspirin; Z79.84 Long term (current) use of oral hypoglycemic drugs; Z79.899 Other long term (current) drug therapy; Z90.49 Acquired absence of other specified parts of digestive tract; Z98.890 Other specified postprocedural states; Z87.891 Personal history of nicotine dependence; Z80.8 Family history of malignant neoplasm of other organs or systems
CPT/HCPCS: 96375; 96413; 96415; 96417; A4216; J1100; J2405; J7050; J7070; J9035; J9190; J9263

== ENCOUNTER 2017-09-26 11:11 | Day surgery (SDC) | payer MEDICARE, OTHER ==
[2017-09-26] MEDS ORDERED: FLUOROURACIL IVPB SCH (11:30)
[2017-09-26] MEDS ORDERED: Ondansetron HCl/PF 4 MG/2 ML Vial IVP SCH (11:30)
[2017-09-26] MEDS ORDERED: BEVACIZUMAB IVPB SCH (11:30)
[2017-09-26] MEDS ORDERED: [UNRECOGNIZED DRUG - OTHER] IVPB SCH (11:30)
[2017-09-26] MEDS ORDERED: DEXTROSE IVPB SCH ×2 (11:30)
[2017-09-26] MEDS ORDERED: WATER IVPB SCH ×3 (11:30→11:45)
[2017-09-26] MEDS ORDERED: ADMIXTURE FEE IVPB SCH ×3 (11:30)
[2017-09-26] MEDS ORDERED: OXALIPLATIN IVPB SCH ×2 (11:30→11:45)
[2017-09-26] MEDS ORDERED: Dexamethasone 10 MG/ML VIAL SLOW IVP SCH (11:30)
[2017-09-26] MEDS ORDERED: DEXTROSE 5% IVPB SCH (11:45)
[2017-09-26] MEDS ORDERED: Admixture Fee 1 EACH in Dextrose 5% in Water 10 ML IV SCH (11:45)
[2017-09-26] MEDS ORDERED: Sodium Chloride 0.9% 50 ML ONE (12:11)
[2017-09-26 12:33] VITALS: BP 116/54; TEMP 98.1
== END 2017-09-26 16:15 | disposition home or self-care (01) ==
LOC: ONC/OP 11:11
PROVIDERS: ATTEND Internal Medicine Medical Oncology
DX: Z51.11 Encounter for antineoplastic chemotherapy (principal); C18.7 Malignant neoplasm of sigmoid colon; D50.0 Iron deficiency anemia secondary to blood loss (chronic); E11.9 Type 2 diabetes mellitus without complications; I10 Essential (primary) hypertension; I25.2 Old myocardial infarction; E78.5 Hyperlipidemia, unspecified; Z90.49 Acquired absence of other specified parts of digestive tract; Z79.82 Long term (current) use of aspirin; Z79.84 Long term (current) use of oral hypoglycemic drugs; Z79.899 Other long term (current) drug therapy; Z98.890 Other specified postprocedural states; Z80.8 Family history of malignant neoplasm of other organs or systems
CPT/HCPCS: 36415; 80053; 82248; 82378; 83615; 84100; 84550; 96375; 96413; 96415; 96417; A4216; J1100; J2405; J7050; J7070; J9035; J9190; J9263

== ENCOUNTER 2017-10-17 10:05 | Day surgery (SDC) | payer MEDICARE, OTHER ==
[2017-10-17] MEDS ORDERED: Sodium Chloride 0.9% 40 ML ONE (10:26)
[2017-10-17] MEDS ORDERED: Dexamethasone 10 MG/ML VIAL SLOW IVP SCH (10:30)
[2017-10-17] MEDS ORDERED: WATER IVPB SCH ×2 (10:30)
[2017-10-17] MEDS ORDERED: SODIUM CHLORIDE IVPB SCH (10:30)
[2017-10-17] MEDS ORDERED: BEVACIZUMAB IVPB SCH (10:30)
[2017-10-17] MEDS ORDERED: OXALIPLATIN IVPB SCH ×2 (10:30)
[2017-10-17] MEDS ORDERED: ADMIXTURE FEE IVPB SCH ×2 (10:30)
[2017-10-17] MEDS ORDERED: DEXTROSE 5% IVPB SCH (10:30)
[2017-10-17] MEDS ORDERED: Ondansetron HCl/PF 4 MG/2 ML Vial IVP SCH (10:30)
[2017-10-17] MEDS ORDERED: DEXTROSE IVPB SCH (10:30)
[2017-10-17] MEDS ORDERED: Dextrose 5% in Water 10 ML IVPB SCH (10:45)
[2017-10-17] MEDS ORDERED: Ondansetron 2MG/ML MDV 10 MG in Sodium Chloride 0.9% 50 ML IVPB SCH (11:00)
[2017-10-17 11:42] VITALS: BP 109/58; TEMP 97.8
== END 2017-10-17 14:24 | disposition home or self-care (01) ==
LOC: ONC/OP 10:05
PROVIDERS: ATTEND Internal Medicine Medical Oncology
DX: Z51.11 Encounter for antineoplastic chemotherapy (principal); C18.7 Malignant neoplasm of sigmoid colon; C79.72 Secondary malignant neoplasm of left adrenal gland; C79.71 Secondary malignant neoplasm of right adrenal gland; C79.51 Secondary malignant neoplasm of bone; C77.0 Secondary and unspecified malignant neoplasm of lymph nodes of head, face and neck; C77.2 Secondary and unspecified malignant neoplasm of intra-abdominal lymph nodes; D63.0 Anemia in neoplastic disease; E11.9 Type 2 diabetes mellitus without complications; I10 Essential (primary) hypertension; I25.2 Old myocardial infarction; Z79.899 Other long term (current) drug therapy; Z90.49 Acquired absence of other specified parts of digestive tract; Z98.890 Other specified postprocedural states; Z87.891 Personal history of nicotine dependence; Z80.8 Family history of malignant neoplasm of other organs or systems
CPT/HCPCS: 96367; 96375; 96413; 96415; 96417; A4216; J1100; J2405; J7050; J7070; J9035; J9263

== ENCOUNTER 2017-10-31 10:20 | Day surgery (SDC) | payer MEDICARE, OTHER ==
[2017-10-31] MEDS ORDERED: BEVACIZUMAB IVPB SCH (12:00)
[2017-10-31] MEDS ORDERED: Bevacizumab 400 MG, Bevacizumab 100 MG in Sodium Chloride 0.9% 80 ML IVPB SCH (12:00)
[2017-10-31] MEDS ORDERED: WATER IVPB SCH (12:00)
[2017-10-31] MEDS ORDERED: SODIUM CHLORIDE 0.9% IVPB SCH (12:00)
[2017-10-31] MEDS ORDERED: Admixture Fee 1 EACH in Dextrose 5% in Water 10 ML IV SCH (12:00)
[2017-10-31] MEDS ORDERED: DEXTROSE 5% IVPB SCH (12:00)
[2017-10-31] MEDS ORDERED: OXALIPLATIN IVPB SCH (12:00)
[2017-10-31] MEDS ORDERED: Dexamethasone 10 MG, Ondansetron 2MG/ML MDV 10 MG in Sodium Chloride 0.9% 50 ML IVPB SCH (12:00)
[2017-10-31] MEDS ORDERED: Sodium Chloride 0.9% 40 ML ONE (12:51)
[2017-10-31 19:30] VITALS: BP 135/63
== END 2017-10-31 19:34 | disposition home or self-care (01) ==
LOC: ONC/OP 10:20
PROVIDERS: ATTEND Internal Medicine Medical Oncology
DX: Z51.11 Encounter for antineoplastic chemotherapy (principal); C18.7 Malignant neoplasm of sigmoid colon; C79.72 Secondary malignant neoplasm of left adrenal gland; C79.51 Secondary malignant neoplasm of bone; C77.9 Secondary and unspecified malignant neoplasm of lymph node, unspecified; C78.6 Secondary malignant neoplasm of retroperitoneum and peritoneum; D63.0 Anemia in neoplastic disease; E11.9 Type 2 diabetes mellitus without complications; I10 Essential (primary) hypertension; I25.2 Old myocardial infarction; E78.5 Hyperlipidemia, unspecified; Z79.84 Long term (current) use of oral hypoglycemic drugs; Z79.899 Other long term (current) drug therapy; Z90.49 Acquired absence of other specified parts of digestive tract; Z98.890 Other specified postprocedural states; Z87.891 Personal history of nicotine dependence; Z80.8 Family history of malignant neoplasm of other organs or systems
CPT/HCPCS: 96367; 96413; 96415; 96416; 96417; A4216; J1100; J2405; J7050; J7070; J9035; J9263

== ENCOUNTER 2017-11-10 12:02 | Outpatient (CLI) | payer MEDICARE, OTHER ==
--- NOTE | 2017-11-10 14:51 | PET ---
RADIONUCLIDE PET SCAN WITH CT ATTENUATION CORRECTION: Date: 11/10/17 HISTORY: Colon cancer with osseous metastasis. Restaging. COMPARISON: 08/11/17. FINDINGS: Physiologic uptake is again demonstrated throughout the enteric system and along each urinary tract. Overall, there has been increase in uptake associated with skeletal lesions. Measurement of the most significant lesions are as follows: OSSEOUS LOCATION CURRENT Q.CLEAR MAX SUV PREVIOUS Right coracoid process 8.0 3.1 T2 vertebral body 6.2 3.7 T3 right transverse process 5.6 3.7 T4 vertebral body 8.4 3.1 Right mid rib anterior 5.1 4.1 T6 vertebral body 4.9 2.6 T9 right transverse process 8.2 9.3 Right iliac bone 7.6 5.0 Left acetabulum 8.4 4.0 Right lesser trochanter 9.8 4.1 Hypermetabolic activity associated with the rectum is unchanged at maximum SUV 8.4. IMPRESSION: While no new metastatic foci are apparent, there has been overall increase in degree of hypermetaboli c activity throughout the skeleton, as detailed above. Uptake at the rectum is unchanged. POS: [facility]
== END 2017-11-10 12:03 | disposition home or self-care (01) ==
LOC: PET 12:02
PROVIDERS: ATTEND Internal Medicine Medical Oncology
DX: C18.9 Malignant neoplasm of colon, unspecified (principal)
CPT/HCPCS: 78815; A9552

== ENCOUNTER 2017-11-14 11:15 | Outpatient (CLI) | payer MEDICARE | END 2017-11-14 11:16 | disposition home or self-care (01) | LOC: BICRAD 11:15 | PROVIDERS: ATTEND Internal Medicine Medical Oncology | DX: C18.7 Malignant neoplasm of sigmoid colon (principal) | CPT/HCPCS: 77075 ==

== ENCOUNTER 2017-11-23 07:54 | Day surgery (SDC) | payer MEDICARE, OTHER ==
[2017-11-23] MEDS ORDERED: Dexamethasone 10 MG/ML VIAL SLOW IVP SCH (08:45)
[2017-11-23] MEDS ORDERED: PALONOSETRON HCL 0.05 MG/ML 5 ML VIAL IVP SCH (08:45)
[2017-11-23] MEDS ORDERED: IRINOTECAN HCL IVPB SCH (08:45)
[2017-11-23] MEDS ORDERED: BEVACIZUMAB IVPB SCH (08:45)
[2017-11-23] MEDS ORDERED: SODIUM CHLORIDE IVPB SCH ×3 (08:45)
[2017-11-23] MEDS ORDERED: LEUCOVORIN CALCIUM IVPB SCH (08:45)
[2017-11-23] MEDS ORDERED: Atropine Sulfate 0.25 MG, Admixture Fee 1 EACH in Sodium Chloride 0.9% 50 ML IVPB SCH (08:45)
[2017-11-23] MEDS ORDERED: ADMIXTURE FEE IVPB SCH ×3 (08:45)
[2017-11-23] MEDS ORDERED: Sodium Chloride 0.9% 50 ML ONE (08:46)
[2017-11-23] MEDS ORDERED: Bevacizumab 400 MG, Bevacizumab 100 MG in Sodium Chloride 0.9% 80 ML IVPB SCH (09:00)
[2017-11-23 10:45] VITALS: BP 122/61; TEMP 97.7
== END 2017-11-23 13:13 | disposition home or self-care (01) ==
LOC: ONC/OP 07:54
PROVIDERS: ATTEND Internal Medicine Medical Oncology
DX: Z51.11 Encounter for antineoplastic chemotherapy (principal); C18.7 Malignant neoplasm of sigmoid colon
CPT/HCPCS: 96367; 96375; 96413; 96415; 96416; 96417; A4216; J0461; J0640; J1100; J2469; J7050; J9035; J9206

== ENCOUNTER 2017-12-30 07:48 | Emergency (ER) | payer MEDICARE ==
[2017-12-30 08:55] LABS: #Lymphocytes 1.1 thou/uL (1.20-3.40); #Monocytes 0.9 thou/uL (0.11-0.59); #Neutrophils 5.5 thou/uL (1.40-6.50); %Basophils 0.5 % (0.0-1.0); %Eosinophils 0.3 % (0.0-10.0); %Lymphocytes 14.3 % (21.0-51.0); %Monocytes 11.9 % (0.0-10.0); %Neutrophils 73.1 % (42.0-75.0); Hemoglobin 12.6 g/dL (14.0-18.0); Mean Corpuscular HGB CONC 32.5 g/dL (32.0-36.0); Mean Corpuscular Hemoglobin 28.4 pg (27.0-31.0); Mean Corpuscular Volume 87.5 fL (78.0-98.0); Mean Platelet Volume 8.1 fL (7.4-10.4); Platelet Count 175 thou/uL (130-400); Red Blood Cell (RBC) Count 4.44 mill/uL (4.70-6.10); White Blood Cell (WBC) Count 7.5 thou/uL (4.8-10.8)
[2017-12-30 09:14] LABS: CKMB 3.2 ng/mL (0-6.6); Troponin I 0.013 ng/mL (< 0.028)
--- NOTE | 2017-12-30 09:23 | RAD ---
CHEST 1 VIEW: Date: 12/30/17 HISTORY: Dyspnea. COMPARISON: 06/03/09. FINDINGS: Cardiac silhouette magnified by projection. Pulmonary vasculature unremarkable. Mediastinum midline w ith postoperative changes and a right subclavian MediPort. No confluent air space consolidation or ev idence of pneumothorax. personnel monitor leads overlie the chest. IMPRESSION: No active cardiopulmonary abnormalities are demonstrated. POS: [facility]
[2017-12-30 09:27] LABS: ALT (SGPT) 46 U/L (8-55); AST (SGOT) 69 U/L (5-34); Albumin 3.4 g/dL (3.4-4.8); Alkaline Phosphatase 452 U/L (40-150); Anion Gap 16 mmol/L (10-20); BUN (Urea Nitrogen) 12 mg/dL (8.4-25.7); Bilirubin, Total 1.2 mg/dL (0.2-1.2); CK (CPK) 104 U/L (30-200); Calc. Creatinine Clearance 0 mL/min (70-130); Calcium 9.5 mg/dL (7.8-10.44); Carbon Dioxide 23 mmol/L (23-31); Chloride 101 mmol/L (98-107); Estimated GFR-MDRD Greater than 90; Globulin 4.5 g/dL (2.4-3.5); Glucose 95 mg/dL (83-110); Potassium 5.1 mmol/L (3.5-5.1); Protein, Total 7.9 g/dL (5.8-8.1); Sodium 135 mmol/L (136-145)
[2017-12-30] MEDS ORDERED: Magnesium Citrate 300 ML BOT ONE (09:49)
[2017-12-30] MEDS ORDERED: ISOVUE-370 76%-LOCM 1 ML ONE (09:54)
--- NOTE | 2017-12-30 10:30 | CT ---
CT ARTERIOGRAM CHEST WITH IV CONTRAST AND 3D MIP IMAGING: Date: 12/30/17 HISTORY: Chest pain. Dyspnea. FINDINGS: There is good contrast opacification of the pulmonary arteries and thoracic aorta with normal branchi ng of the great vessels. Prominent arterial calcifications. Lungs are hyperinflated with scattered ar eas of scarring and atelectasis at the left base. No enlarged lymph nodes of the mediastinum are appa rent. Degenerative changes throughout the thoracic spine. Sclerotic lesions are consistent with known metastatic foci. Within the partially visualized upper abdomen, gallstones are apparent. IMPRESSION: 1. No CT evidence of pulmonary embolus. 2. Atherosclerosis. 3. COPD. 4. Cholelithiasis. POS: [facility]
--- NOTE | 2017-12-31 14:24 | EKG ---
Test Reason : Blood Pressure : / mmHG Vent. Rate : 057 BPM Atrial Rate : 057 BPM P-R Int : 214 ms QRS Dur : 094 ms QT Int : 430 ms P-R-T Axes : 050 019 052 degrees QTc Int : 418 ms Sinus bradycardia with 1st degree A-V block Anteroseptal infarct , age undetermined Abnormal ECG Confirmed by JONES DOCKERY, CORIN ([id number]), editor news ISABEL KU ([id number]) on 12/31/2017 2:23:53 PM Referred By: Confirmed By:CORIN GOLDMAN MD
== END 2017-12-30 11:38 | disposition home or self-care (01) ==
LOC: ERS 07:48
DX: R06.02 Shortness of breath (principal); R09.81 Nasal congestion; E11.9 Type 2 diabetes mellitus without complications; I10 Essential (primary) hypertension; E78.5 Hyperlipidemia, unspecified; K59.00 Constipation, unspecified; Z79.82 Long term (current) use of aspirin; Z79.84 Long term (current) use of oral hypoglycemic drugs; Z79.899 Other long term (current) drug therapy
CPT/HCPCS: 71045; 71275; 80053; 82553; 84484; 85025; 93005; 94760

== ENCOUNTER 2018-01-07 20:56 | Observation (INO) | payer MEDICARE ==
[~2018-01-07 20:56] MED LIST: ISOVUE-370 76%-LOCM 1 ML ONE
[2018-01-07 21:35] LABS: #Eosinphils 0.1 thou/uL (0.0-0.7); #Lymphocytes 1.2 thou/uL (1.20-3.40); #Monocytes 0.8 thou/uL (0.11-0.59); #Neutrophils 4.4 thou/uL (1.40-6.50); %Basophils 0.7 % (0.0-1.0); %Eosinophils 1.2 % (0.0-10.0); %Monocytes 11.7 % (0.0-10.0); %Neutrophils 67.5 % (42.0-75.0); Hemoglobin 13.5 g/dL (14.0-18.0); Mean Corpuscular HGB CONC 33.8 g/dL (32.0-36.0); Mean Corpuscular Hemoglobin 29.2 pg (27.0-31.0); Mean Corpuscular Volume 86.3 fL (78.0-98.0); Mean Platelet Volume 6.5 fL (7.4-10.4); Platelet Count 203 thou/uL (130-400); RBC Distribution Width 18.4 % (11.5-14.5); Red Blood Cell (RBC) Count 4.61 mill/uL (4.70-6.10); White Blood Cell (WBC) Count 6.5 thou/uL (4.8-10.8)
[2018-01-07 21:55] LABS: Bilirubin Small (Negative); Blood, Urine Negative (Negative); Clarity CLEAR (Clear); Glucose, Urine (Dipstick) Negative (Negative); Leukocyte Small (Negative); Nitrite Negative (Negative); Protein, Urine (Dipstick) Negative (Neg-Trace); Specific Gravity, Urine 1.029 (1.002-1.036); pH, Urine 6.5 (5.0-9.0)
--- NOTE | 2018-01-07 21:55 | RAD ---
SINGLE VIEW OF THE CHEST: 01/07/18 COMPARISON: 12/30/17 HISTORY: Chest pain, nausea and vomiting. FINDINGS: Single view of the chest shows normal sized cardiomediastinal silhouette. The Mediport is unchanged i n position. The patient is status post sternotomy. There is no evidence of consolidation, mass or ple ural effusion. IMPRESSION: No evidence of acute cardiopulmonary disease. POS: [facility]
[2018-01-07 21:57] LABS: Bacteria/HPF None Seen HPF (None Seen); Hyaline Casts/LPF 0-3 HYALINE CAST LPF (0-3 Hyaline); Pathc Cast-AUWi Flag 1.74 (0-2.49); RBC/HPF 0-3 HPF (0-3)
[2018-01-07 21:58] LABS: ALT (SGPT) 24 U/L (8-55); AST (SGOT) 42 U/L (5-34); Albumin 3.3 g/dL (3.4-4.8); Alkaline Phosphatase 339 U/L (40-150); Anion Gap 14 mmol/L (10-20); BUN (Urea Nitrogen) 15 mg/dL (8.4-25.7); Bilirubin, Total 0.9 mg/dL (0.2-1.2); Calc. Creatinine Clearance 0 mL/min (70-130); Calcium 9.2 mg/dL (7.8-10.44); Carbon Dioxide 24 mmol/L (23-31); Chloride 97 mmol/L (98-107); Estimated GFR-MDRD Greater than 90; Globulin 3.8 g/dL (2.4-3.5); Glucose 100 mg/dL (83-110); Lipase 14 U/L (8-78); Magnesium 1.5 mg/dL (1.6-2.6); Potassium 4.7 mmol/L (3.5-5.1); Protein, Total 7.1 g/dL (5.8-8.1); Sodium 130 mmol/L (136-145)
[2018-01-07 22:01] LABS: CKMB 4.4 ng/mL (0-6.6); Troponin I Less than 0.010 ng/mL (< 0.028)
[2018-01-07] MEDS ORDERED: Magnesium Sulfate 2 GM in Sodium Chloride 0.9% 100 ML IVPB SCH (22:45)
[2018-01-07] MEDS ORDERED: Ketorolac Tromethamine 30 MG/ML VIAL ONE (23:03)
[2018-01-07] MEDS ORDERED: Ondansetron ODT 4 MG TAB ONE (23:13)
--- NOTE | 2018-01-07 23:59 | CT ---
CTA OF THE CHEST WITH CONTRAST: 01/07/18 COMPARISON: 12/30/17. HISTORY: Hemoptysis. History of colon cancer with weakness and loss of appetite for the past six days. Patient 's last chemotherapy was six weeks ago. TECHNIQUE: Multiple contiguous axial images were obtained in a CTA of the chest with contrast for pulmonary emb olism protocol. 3D oblique MIP reformats and direct coronal reformats were performed. FINDINGS: The pulmonary arteries are well opacified without filling defects to suggest pulmonary emboli. The h eart is normal in size. Calcifications are seen in the coronary arteries and aorta. The patient is st atus post CABG. No hilar or mediastinal lymphadenopathy are appreciated. There is stable pleural thickening in the left lung base. A calcified granuloma is seen adjacent to t his pleural thickening in the left lung base. No suspicious pulmonary nodules are identified. No pneu mothorax or significant pleural effusion are seen. Gallstones are seen in the gallbladder. Calcifications in the liver and spleen are from prior granulo matous disease. The other visualized subdiaphragmatic structures are unremarkable. Degenerative changes are seen in the spine. The chest wall soft tissues are unremarkable. IMPRESSION: 1. No evidence of pulmonary thromboembolism. 2. Cholelithiasis. 3. Stable pleural thickening in the left lung base. POS: H
[2018-01-08 01:30] LABS: Lactic Acid 1.7 mmol/L (0.5-2.2)
[2018-01-08 01:41] LABS: Troponin I 0.012 ng/mL (< 0.028)
[2018-01-08] MEDS ORDERED: Acetaminophen 325 MG TAB PO PRN (01:50)
[2018-01-08] MEDS ORDERED: Ondansetron HCl/PF 4 MG/2 ML Vial IVP PRN (01:50)
[2018-01-08] MEDS ORDERED: Dextrose 50% Abboject 50 ML SYRINGE SLOW IVP PRN (01:53)
[2018-01-08] MEDS ORDERED: HumaLOG 300 UNITS/3 ML VIAL SC PRN (01:53)
[2018-01-08] MEDS ORDERED: Dextrose 5% in Water 1,000 ML IV PRN (01:53)
[2018-01-08] MEDS: Sodium Chloride 0.9% 1,000 ML IV SCH ×2 (03:50→18:34)
[2018-01-08 05:46] LABS: #Eosinphils 0.1 thou/uL (0.0-0.7); #Lymphocytes 1.1 thou/uL (1.20-3.40); #Monocytes 0.7 thou/uL (0.11-0.59); #Neutrophils 4.4 thou/uL (1.40-6.50); %Basophils 0.4 % (0.0-1.0); %Eosinophils 1.5 % (0.0-10.0); %Lymphocytes 17.3 % (21.0-51.0); %Monocytes 11.3 % (0.0-10.0); %Neutrophils 69.6 % (42.0-75.0); Hemoglobin 13.1 g/dL (14.0-18.0); Mean Corpuscular HGB CONC 31.6 g/dL (32.0-36.0); Mean Corpuscular Hemoglobin 27.3 pg (27.0-31.0); Mean Corpuscular Volume 86.6 fL (78.0-98.0); Mean Platelet Volume 7.1 fL (7.4-10.4); Platelet Count 189 thou/uL (130-400); RBC Distribution Width 18.4 % (11.5-14.5); Red Blood Cell (RBC) Count 4.78 mill/uL (4.70-6.10); White Blood Cell (WBC) Count 6.4 thou/uL (4.8-10.8)
[2018-01-08 06:09] LABS: Anion Gap 13 mmol/L (10-20); BUN (Urea Nitrogen) 15 mg/dL (8.4-25.7); Calc. Creatinine Clearance 118 mL/min (70-130); Calcium 9.2 mg/dL (7.8-10.44); Carbon Dioxide 25 mmol/L (23-31); Chloride 96 mmol/L (98-107); Estimated GFR-MDRD Greater than 90; Glucose 91 mg/dL (83-110); Potassium 4.5 mmol/L (3.5-5.1); Sodium 129 mmol/L (136-145)
[2018-01-08 06:11] LABS: Troponin I Less than 0.010 ng/mL (< 0.028)
[2018-01-08] MEDS ORDERED: Senokot 8.6 MG TAB PO PRN (08:32)
[2018-01-08] MEDS ORDERED: Bisacodyl 10 MG SUPP PR PRN (08:32)
[2018-01-08] MEDS: cefTRIAXone\\ROCEPHIN 1 GM in Sodium Chloride 0.9% 100 ML IVPB SCH (09:30)
[2018-01-08] MEDS: Fish Oil 1,000 MG CAP PO SCH (09:31)
[2018-01-08] MEDS: Carvedilol 25 MG TAB PO SCH (09:31)
--- NOTE | 2018-01-08 11:03 | HP ---
CODE STATUS: DNR/DNI as stated by pt, in room with a meeting with family members. TIME OF EVALUATION: 1 a.m. PRIMARY CARE PHYSICIAN: ANGELINE Mckeon. CHIEF COMPLAINT: Having coughing of blood, also nausea and vomiting. HISTORY OF PRESENT ILLNESS: This is a 72-year-old male patient with past medical history of metastatic colon cancer. Patient has metastasis to the bone , has been receiving chemo, last one 6 weeks ago, patient came to the hospital after having scant-sputum production. There is pink, also reported nausea and vomiting, generalized weakness, failure to thrive. No clear triggers, no alleviating factors. Patient was reporting his symptoms as moderate. The most concerning complaint is that patient does not have any appetite and has been unable to eat in the past few days. REVIEW OF SYSTEMS: Constitutional: No fever. Patient reported as chills. No fever, generalized weakness. Respiratory: Patient has cough, scant-sputum production that is pink . No shortness of breath. Cardiovascular: No chest pain, palpitation, shortness of breath. Gastrointestinal: Patient reported nausea, no vomiting, diarrhea, abdominal pain. BOND MANAGER: No dizziness, headache, feeling lightheaded. Genitourinary: No burning on urination. Extremities: No leg swelling. All other systems reviewed were negative except for the findings mentioned above. PAST MEDICAL HISTORY: Colon cancer, coronary artery disease, history of PE, history of hypertension, diabetes. PAST SURGICAL HISTORY: Coronary artery bypass. PSYCHIATRIC HISTORY: No previous psychiatric history. SOCIAL HISTORY: No drugs. No smoking history. FAMILY HISTORY: Positive in the father for thyroid cancer and the brother with colon cancer. DRUG ALLERGIES: No known drug allergies reported. MEDICATIONS: Aspirin, carvedilol, fish oil, metformin, simvastatin, Augmentin. PHYSICAL EXAMINATION: VITAL SIGNS: On presentation was blood pressure 171/89 with heart rate 75, respiratory rate was 16. Pain was 9/10, oxygen saturations was 97 on room air. GENERAL: The patient is alert, oriented, not in acute distress. HEENT: Eyes: Normal conjunctivae, moist oral mucosa. There is no visible throat abnormalities. The patient is anicteric. NECK: No JVD. RESPIRATORY: Bilateral air entry. No rales, no wheezing. Symmetric expansion. CARDIOVASCULAR: Normal rate, regular rhythm, no murmurs, no gallop. No edema. ABDOMEN: Full, soft, normal bowel sounds. MUSCULOSKELETAL: Baseline range of motion and strength. No tenderness. SKIN: Warm and intact. No pallor, no rash, or redness. NEUROLOGIC: Baseline sensory. No evidence of any new focal weakness. Baseline speech. Cranial nerves seems to be intact. PSYCHIATRIC: Patient in a good mood. No anxiety, oriented, optimal judgment. LABORATORY DATA: Reviewed. Patient's white count is 6.5, hemoglobin 13.5, MCV 86, platelet count 203. D-dimer 1.7. Sodium 130, potassium 4.7, chloride 97, carbon dioxide 24, anion gap 14, BUN 15, creatinine 0.77, GFR greater than 90, glucose 100. Lactic acid 2.4 came down to 1.7, calcium 9.2, magnesium 1.5. Total bilirubin 0.9, AST 42, ALT 24, alkaline phosphatase 339. Troponin has been negative x2. Albumin 3.3. Urine was positive with white count 4-[address] angio was done to rule out pulmonary embolism. No evidence of pulmonary embolism was seen, cholelithiasis, stable pleural thickening of the left lung base. Chest x-ray was done. The patient had no evidence of acute pulmonary disease. EKG was done. The patient had normal sinus rhythm with a rate of 76 with no ectopics, conduction normal, ST segments normal, T waves normal. ASSESSMENT AND PLAN: The patient will be presented to the hospital for a following medical problem: 1. Possible hemoptysis, symptom seems to be more related to the throat, there are no abnormalities seen in the overall examination. The CT angio was completely normal, might be viral pharyngitis. If symptoms persist, patient might need CT of the neck, given the history of cancer to rule out metastasis/ lymphonode in the throat area. The patient initially reported having some nausea, but the family member explained that this is related basically to bring in some mucus from the throat that is being with blood. This will be monitored , workup depending on patient's clinical response. 2. History of colon cancer. Patient is on chemo, patient has metastasis to the bone. We will need pain control, further treatment as outpatient. 3. Urinary tract infection. Patient has positive urine, cancer and chemo. Patient has been started on antibiotics that will continue for now. 3. Positive D-dimer, no evidence of any venous thromboembolism, this is likely secondary to cancer. 4. Hyponatremia. Sodium 130, this is minimal, no need for any acute intervention. 5. Lactic acidosis of presentation with lactic acid 2.4 came down to 1.7. 6. Hypomagnesemia, this is acute, replacement given in the ER, we will monitor , we will treat accordingly. 7. Deep venous thrombosis prophylaxis. MTDD
[2018-01-08] MEDS ORDERED: Atorvastatin Calcium 20 MG TAB PO SCH (21:00)
[2018-01-09] MEDS ORDERED: Lorazepam 2 MG/ML VIAL SLOW IVP SCH (00:15)
[2018-01-09 00:44] VITALS: TEMP 97.7
[2018-01-09] MEDS: Sodium Chloride 0.9% 1,000 ML IV SCH (08:03)
[2018-01-09] MEDS: Fish Oil 1,000 MG CAP PO SCH (08:38)
[2018-01-09] MEDS: Carvedilol 25 MG TAB PO SCH (08:38)
[2018-01-09 09:26] VITALS: BP 164/84
[2018-01-09 11:14] VITALS: BMI 24.6
[2018-01-09] MEDS: cefTRIAXone\\ROCEPHIN 1 GM in Sodium Chloride 0.9% 100 ML IVPB SCH (12:43)
--- NOTE | 2018-01-10 00:26 | DIS ---
DATE OF ADMISSION: 01/08/2018 DATE OF DISCHARGE: 01/09/2018 DISCHARGE DIAGNOSES: 1. Metastatic colon cancer. 2. Cystitis without identifiable organism. 3. Question of hemoptysis, resolved. 4. Hyponatremia, chronic. 5. Lactic acidosis, resolved. 6. Diabetes mellitus, type 2. CONSULTATIONS: Palliative Care Service. PERTINENT LABORATORY DATA AND X-RAY FINDINGS: Sodium ranged between 129-130. Creatinine 0.77. Lact ic acid level ranged between 1.7-2.4, magnesium 1.5, AST 42, ALT of 24, alkaline phosphatase 339, alb umin 3.3. TSH 6.8, free T4 of 0.99. CBC showed a hemoglobin of ranging between 13.1 to 13.5. D-dim er 1.70. Blood cultures x2 from 01/07/2018 showed no growth at 48 hours. Urine culture dated 2017 showed 10,000 to 25,000 colonies of mixed skin catherine. Portable chest x-ray dated 01/07/2018 merrick wed no acute cardiopulmonary process. CT angiogram of the chest dated 01/07/2018 showed no evidence for acute thrombus, left lung base pleural thickening. HOSPITAL COURSE: Patient was observed on the oncology unit after presenting with questionable hemopt ysis and blood-tinged sputum. Patient with significant history of metastatic colon cancer on current chemotherapy. Patient underwent general evaluation including chest imaging showing no acute process . Patient did receive IV Rocephin after concern for potential urinary tract infection with initial u rinalysis positive for leukocyte esterase and white blood cells. Urine culture did not reveal specif ic organism; however, recommendations are to transition to Omnicef 300 mg b.i.d. for 5 days. Patient was also evaluated by the Palliative Care Service due to stage IV colon cancer and comorbid status. The patient and family have decided to pursue hospice care after discharge and will transition with [facility] services. I have examined the patient at the time of discharge and discuss followu p instructions. Patient verbalizes understanding and agreement and ready for discharge on 01/09/2018 . DISCHARGE MEDICATIONS: 1. Enteric-coated aspirin 81 mg one tab p.o. daily. 2. Coreg 12.5 mg p.o. daily. 3. Omnicef 300 mg p.o. b.i.d. x5 days. 4. Iron 18 mg p.o. b.i.d. 5. Metformin 500 mg p.o. q.a.m. 6. [place] 3 fatty acids one capsule p.o. daily. 7. Zocor 40 mg p.o. at bedtime. FOLLOWUP: Patient to follow up with [facility] after discharge home. Patient will f ollow up with Dr. Slime Sanchez, Family Nurse Practitioner as needed. CONDITION ON DISCHARGE: Guarded. ACTIVITY: Ad-con. DIET: ADA. CODE STATUS: DO NOT RESUSCITATE, DO NOT INTUBATE. DISPOSITION: Home with [facility] on 01/09/2018.
[2018-01-10] MEDS ORDERED: cefTRIAXone\\ROCEPHIN 1 GM, Admixture Fee 1 EACH in Sodium Chloride 0.9% 100 ML IVPB SCH (10:00)
== END 2018-01-09 18:06 | disposition hospice, home (50) ==
LOC: ERS 20:56 → ONC 01-08 01:44
PROVIDERS: ADMIT Hospitalist; ATTEND Hospitalist
DX: C18.9 Malignant neoplasm of colon, unspecified (principal); C79.51 Secondary malignant neoplasm of bone; E87.1 Hypo-osmolality and hyponatremia; E87.2 Acidosis; E11.9 Type 2 diabetes mellitus without complications; I25.10 Atherosclerotic heart disease of native coronary artery without angina pectoris; I10 Essential (primary) hypertension; N39.0 Urinary tract infection, site not specified; E83.42 Hypomagnesemia; Z79.82 Long term (current) use of aspirin; Z79.84 Long term (current) use of oral hypoglycemic drugs; Z79.899 Other long term (current) drug therapy
CPT/HCPCS: 51702; 71045; 71275; 80048; 82553; 82962 ×3; 83605 ×2; 83690; 83735; 84439; 84484 ×3; 85025; 85379; 87040; 87086; 93005; 96361 ×2; 96365; 96367; 96375 ×3; 99285; G0378; 36415; 36416; 80053; 81003; 81015; 84443; A4216; J0696; J1885; J2060; J2270; J2405; J3475; J7050; Q0162